=== PATIENT | male | born 1990 | race Caucasian/White ===

== ENCOUNTER 2019-12-03 11:51 | Emergency (ER) | payer OTHER ==
[~2019-12-03] VITALS: Ht 180.3 cm; Wt 96.6 kg
[2019-12-03] MEDS ORDERED: MOBIC15 MG PO (12:29)
[2019-12-03] MEDS ORDERED: LIDODERM1 EACH TRANSDERM (12:29)
[2019-12-03 12:47] VITALS: BP 143/95
== END 2019-12-03 12:48 | disposition home or self-care (01) ==
LOC: M.ERS 11:51
DX: M54.5 Low back pain (principal)

== ENCOUNTER 2019-12-27 15:57 | Emergency (ER) | payer OTHER ==
[~2019-12-27] VITALS: Ht 180.3 cm; Wt 96.6 kg
[~2019-12-27 15:57] MED LIST: LIDODERM1 EACH TRANSDERM; MOBIC15 MG PO
[2019-12-27] MEDS ORDERED: MEDROLDOSEPACK PO (17:55)
[2019-12-27] MEDS ORDERED: NAPROSYN500 MG PO ×3 (17:55→17:56)
[2019-12-27] MEDS ORDERED: FLEXERIL PO ×3 (17:55→17:56)
[2019-12-27 18:02] VITALS: BP 148/87
== END 2019-12-27 18:03 | disposition home or self-care (01) ==
LOC: M.ERS 15:57
DX: M54.5 Low back pain (principal); M41.9 Scoliosis, unspecified; Z91.041 Radiographic dye allergy status; Z91.013 Allergy to seafood

== ENCOUNTER 2020-01-21 14:57 | Emergency (ER) | payer OTHER ==
[~2020-01-21] VITALS: Ht 180.3 cm; Wt 96.6 kg
[~2020-01-21 14:57] MED LIST changes: +FLEXERIL PO; +MEDROLDOSEPACK PO; +NAPROSYN500 MG PO
[2020-01-21] MEDS ORDERED: NAPROSYN500 MG PO (15:50)
[2020-01-21 16:13] VITALS: BP 121/85
== END 2020-01-21 16:14 | disposition home or self-care (01) ==
LOC: M.ERS 14:57
DX: M25.512 Pain in left shoulder (principal); F41.9 Anxiety disorder, unspecified; Z91.013 Allergy to seafood; Z88.8 Allergy status to other drugs, medicaments and biological substances

== ENCOUNTER 2020-02-22 15:09 | Emergency (ER) | payer OTHER ==
[~2020-02-22] VITALS: Ht 180.3 cm; Wt 96.6 kg
[2020-02-22] MEDS ORDERED: NAPROSYN500 MG PO (15:38)
[2020-02-22] MEDS ORDERED: AMOXICILLIN 50500 MG PO (15:38)
[2020-02-22 15:57] VITALS: BP 120/83
== END 2020-02-22 15:58 | disposition home or self-care (01) ==
LOC: M.ERS 15:09
DX: K08.89 Other specified disorders of teeth and supporting structures (principal); M41.9 Scoliosis, unspecified; Z91.013 Allergy to seafood; Z91.041 Radiographic dye allergy status

== ENCOUNTER 2020-03-09 09:56 | Emergency (ER) | payer OTHER ==
[~2020-03-09] VITALS: Ht 180.3 cm; Wt 90.7 kg
[~2020-03-09 09:56] MED LIST changes: +AMOXICILLIN 50500 MG PO
[2020-03-09 11:05] VITALS: BP 136/80
== END 2020-03-09 11:06 | disposition home or self-care (01) ==
LOC: M.ERS 09:56
DX: J06.9 Acute upper respiratory infection, unspecified (principal); F41.9 Anxiety disorder, unspecified; Z20.828 Contact with and (suspected) exposure to other viral communicable diseases; Z91.013 Allergy to seafood; Z88.8 Allergy status to other drugs, medicaments and biological substances

== ENCOUNTER 2020-08-30 09:48 | Emergency (ER) | payer OTHER ==
[~2020-08-30] VITALS: Ht 180.3 cm; Wt 104.3 kg
[2020-08-30 10:52] VITALS: BP 146/96
== END 2020-08-30 10:54 | disposition home or self-care (01) ==
LOC: M.ERS 09:48
DX: B34.9 Viral infection, unspecified (principal); Z20.822 Contact with and (suspected) exposure to COVID-19; M41.9 Scoliosis, unspecified; Z91.041 Radiographic dye allergy status; Z91.013 Allergy to seafood

== ENCOUNTER 2020-10-11 12:52 | Emergency (ER) | payer OTHER ==
[~2020-10-11] VITALS: Ht 180.3 cm; Wt 104.3 kg
[2020-10-11 13:11] LABS: URINE BILIRUBIN NEGATIVE (Negative); URINE BLOOD NEGATIVE (Negative); URINE CLARITY CLEAR; URINE COLOR YELLOW; URINE GLUCOSE-RANDOM NEGATIVE (Negative); URINE KETONES NEGATIVE (Negative); URINE LEUKOCYTES-REFLEX NEGATIVE (Negative); URINE NITRITE-REFLEX NEGATIVE (Negative); URINE PROTEIN NEGATIVE (Negative); URINE UROBILINOGEN 0.2 E.U./dl (0.2-1.0)
[2020-10-11 13:50] LABS: ABSOLUTE BASOPHILS 0.1 thou/uL (0.0-0.2); ABSOLUTE EOSINOPHILS 0.1 thou/uL (0.0-0.7); ABSOLUTE LYMPHOCYTES 2.9 thou/uL (0.8-5.3); ABSOLUTE MONOCYTES 0.5 thou/uL (0.0-1.2); ABSOLUTE NEUTROPHILS 2.8 thou/uL (1.6-8.1); BASOPHILS 0.9 %; EOSINOPHILS 1.8 %; HEMATOCRIT 49.3 % (42.0-52.0); HEMOGLOBIN 16.5 gm/dL (14.0-18.0); LYMPHOCYTES 45.4 %; MCHC 33.5 g/dL (28.0-37.0); MCV 83.5 fL (80.0-100.0); MPV 7.7 fl. (7.2-11.1); NUCLEATED RBCS 0 /100WBC; PLATELET COUNT* 300 thou/uL (150-400); POLYS 43.9 %; RBC 5.91 mil/uL (4.50-6.00); RDW-CV 14.6 % (10.5-14.5); WBC 6.3 thou/uL (4.0-11.0)
[2020-10-11 13:54] LABS: CALCIUM 9.2 mg/dL (8.5-10.1); CREATININE 0.9 mg/dL (0.6-1.3); POTASSIUM 4.1 mmol/L (3.5-5.1)
[2020-10-11 13:58] LABS: TOTAL BILIRUBIN 1.3 mg/dL (<0.1-1.0)
[2020-10-11] MEDS ORDERED: FLEXERIL PO (14:30)
[2020-10-11] MEDS ORDERED: NAPROSYN500 MG PO (14:30)
[2020-10-11 14:41] VITALS: BP 136/90
== END 2020-10-11 14:42 | disposition home or self-care (01) ==
LOC: M.ERS 12:52
PROVIDERS: Nurse Practitioner Family
DX: R10.9 Unspecified abdominal pain (principal); M41.9 Scoliosis, unspecified; G89.29 Other chronic pain; M54.9 Dorsalgia, unspecified; Z91.013 Allergy to seafood

== ENCOUNTER 2021-01-26 17:55 | Emergency (ER) | payer OTHER ==
[~2021-01-26] VITALS: Ht 180.3 cm; Wt 108.9 kg
[2021-01-26] MEDS ORDERED: MEDROLDOSEPACK PO (18:26)
[2021-01-26] MEDS ORDERED: FLEXERIL PO (18:26)
[2021-01-26 18:36] VITALS: BP 118/81
== END 2021-01-26 18:38 | disposition home or self-care (01) ==
LOC: M.ERS 17:55
DX: M54.5 Low back pain (principal); Z91.041 Radiographic dye allergy status; Z91.013 Allergy to seafood

== ENCOUNTER 2021-03-02 09:52 | Emergency (ER) | payer OTHER ==
[~2021-03-02] VITALS: Ht 180.3 cm; Wt 104.8 kg
[2021-03-02] MEDS ORDERED: NAPROSYN500 MG PO (11:40)
[2021-03-02 12:10] VITALS: BP 150/70
== END 2021-03-02 12:10 | disposition home or self-care (01) ==
LOC: M.ERS 09:52
DX: M25.511 Pain in right shoulder (principal); F41.9 Anxiety disorder, unspecified; F20.9 Schizophrenia, unspecified; Z91.02 Food additives allergy status; Z91.013 Allergy to seafood

== ENCOUNTER 2021-05-24 21:30 | Emergency (ER) | payer BC ==
[~2021-05-24] VITALS: Ht 180.3 cm; Wt 99.8 kg
[2021-05-24 21:56] VITALS: BP 146/93
== END 2021-05-25 00:42 | disposition left against medical advice (07) ==
LOC: M.ERS 21:30
DX: Z11.52 Encounter for screening for COVID-19 (principal); Z20.822 Contact with and (suspected) exposure to COVID-19; Z53.21 Procedure and treatment not carried out due to patient leaving prior to being seen by health care provider